=== PATIENT | male | born 1960 | race Two or more races ===

== ENCOUNTER 2016-10-31 10:33 | Emergency (ER) | payer MEDICAID ==
[~2016-10-31] VITALS: Ht 175.3 cm; Wt 142.4 kg
[~2016-10-31 10:33] MED LIST: AMIO200T33 PO; AMLO5TAB2 PO; ASPI81CH43 PO; BENA20TA14 PO; CARV25TA55 PO; DIGO0.1262 PO; FUR40T PO; POT20T PO; SPIR25TA89 PO; WARF2.5T39 PO
[2016-10-31] MEDS ORDERED: SODIUM CHLORIDE 0.9% 1,000 ML IV ONE (11:42)
[2016-10-31] MEDS ORDERED: DIGOXIN (250MCG/ML) 2 ML AMPULE IV ONE (11:45)
[2016-10-31 12:11] LABS: Basophils # (auto) 0.1 uL; CONDITION Y; Eosinophils # (auto) 0.2 uL; Eosinophils % (auto) 2.7 % (0.0-7.0); Hematocrit 44.3 % (41.0-53.0); Lymphocytes # (auto) 1.2 uL; Lymphocytes % (auto) 15.2 % (10.0-50.0); Mean Corpuscular Hemoglobin 31.5 pg (28.0-32.0); Mean Corpuscular Hgb Conc. 33.8 g/dL (32.0-36.0); Mean Corpuscular Volume 93.3 fL (80.0-100.0); Mean Platelet Volume 11.4 fL (7.4-10.4); Monocytes # (auto) 0.6 uL; Monocytes % (auto) 7.6 % (0.0-12.0); Neutrophils # (auto) 5.7 uL; Neutrophils % (auto) 73.5 % (37.0-80.0); Platelet Count (auto) 170 10^3/uL (140-450); Red Cell Distribution Width 14.1 % (11.6-16.0); SUSPECT SEE PRINTOUT; White Blood Cell 7.7 10^3/uL (4.4-10.8)
[2016-10-31 12:23] LABS: INR 0.99 (0.9-1.15); Partial Thromboplastin Time 31.5 sec (22.64-33.71); Prothrombin Time 10.8 sec (9.37-12.3)
[2016-10-31 12:30] LABS: Albumin 3.7 g/dL (3.4-5.0); BUN/Creatinine Ratio 9.8; Calcium 8.9 mg/dL (8.5-10.1); Magnesium 2.2 mg/dL (1.6-2.6); Potassium 4.4 mmol/L (3.5-5.1)
[2016-10-31 12:37] LABS: Bilirubin, Total 1.4 mg/dL (0.2-1.0)
[2016-10-31 16:48] VITALS: BP 129/77
== END 2016-10-31 19:00 | disposition home or self-care (01) ==
LOC: ER 10:33
DX: I13.0 Hypertensive heart and chronic kidney disease with heart failure and stage 1 through stage 4 chronic kidney disease, or unspecified chronic kidney disease (principal); I50.9 Heart failure, unspecified; E11.9 Type 2 diabetes mellitus without complications; N18.9 Chronic kidney disease, unspecified; E11.22 Type 2 diabetes mellitus with diabetic chronic kidney disease; J45.909 Unspecified asthma, uncomplicated; Z79.4 Long term (current) use of insulin; Z95.810 Presence of automatic (implantable) cardiac defibrillator; I48.91 Unspecified atrial fibrillation; Z79.01 Long term (current) use of anticoagulants; E66.01 Morbid (severe) obesity due to excess calories; Z68.42 Body mass index [BMI] 45.0-49.9, adult; E78.5 Hyperlipidemia, unspecified; Z79.82 Long term (current) use of aspirin; Z86.73 Personal history of transient ischemic attack (TIA), and cerebral infarction without residual deficits
CPT/HCPCS: 36415; 71020; 80053; 80162; 83735; 84443; 85025; 85610; 85730; 93005; 94761; 96361; 96374; 99285; J1160; J7030

== ENCOUNTER 2018-04-18 06:42 | Inpatient (IN) | payer MEDICAID ==
[~2018-04-18] VITALS: Ht 175.3 cm; Wt 148.0 kg
[~2018-04-18 06:42] MED LIST changes: -AMIO200T33 PO; -AMLO5TAB2 PO; -ASPI81CH43 PO; -BENA20TA14 PO; -CARV25TA55 PO; +GLIM4TAB42 PO; -POT20T PO; +SACU1TAB PO; -SPIR25TA89 PO; +SPIR50TA5 PO
[2018-04-18] MEDS ORDERED: LIDOCAINE 2%HCL (LOCAL ANESTH.) INJ 20ML MDV ONE ×3 (07:12→08:27)
[2018-04-18] MEDS ORDERED: fentaNYL CITRATE 100 MCG/2 ML VL ONE (07:32)
[2018-04-18] MEDS ORDERED: MIDAZOLAM HCL 1MG/1ML-2 ML VIAL ONE (07:32)
[2018-04-18] MEDS ORDERED: ceFAZolin 1GM/50ML 50 ML IV ONE (08:20)
[2018-04-18] MEDS ORDERED: ceFAZolin 1GM VL ONE (08:21)
[2018-04-18] MEDS: SACUBITRIL-VALSARTAN 24mg/26mg TAB PO SCH ×2 (10:00→21:38)
[2018-04-18] MEDS: SPIRONOLACTONE 25 MG TAB PO SCH (10:00)
[2018-04-18] MEDS ORDERED: NITROGLYCERIN 0.4 MG SL TAB SL PRN (10:15)
[2018-04-18] MEDS ORDERED: HYDROcodone-ACET 5/325MG TAB PO PRN (10:15)
[2018-04-18] MEDS ORDERED: ONDANSETRON HCL 4 MG/2 ML VIAL IV PRN (10:15)
[2018-04-18] MEDS ORDERED: WARFARIN SODIUM 5 MG TAB PO ONE (10:15)
[2018-04-18] MEDS ORDERED: DOXYCYCLINE 100 MG TAB/CAP PO ONE (10:15)
[2018-04-18] MEDS ORDERED: MORPHINE SULFATE 4 MG/ML SYR/VIAL IV PRN (10:15)
[2018-04-18] MEDS ORDERED: FUROSEMIDE 40 MG TAB PO ONE (10:45)
[2018-04-18] MEDS ORDERED: SPIRONOLACTONE 25 MG TAB PO ONE (10:45)
[2018-04-18] MEDS ORDERED: SACUBITRIL-VALSARTAN 24mg/26mg TAB PO ONE (10:45)
[2018-04-18] MEDS ORDERED: DEXTROSE (50%) 50ML SYRG IV PRN (10:45)
[2018-04-18] MEDS ORDERED: GLIMEPIRIDE 2 MG TAB PO ONE (10:45)
[2018-04-18] MEDS: ACCU-CHEK COMFORT CURVE STRIP VI SCH ×3 (10:50→21:39)
[2018-04-18] MEDS: InsuLIN REG 1unit/0.01ml Soln (100units/ml) SC SCH ×3 (10:50→21:39)
[2018-04-18] MEDS: GLIMEPIRIDE 2 MG TAB PO SCH (11:03)
[2018-04-18 12:41] LABS: Albumin 3.5 g/dL (3.4-5.0); BUN/Creatinine Ratio 12.2; Calcium 8.2 mg/dL (8.5-10.1); Partial Thromboplastin Time 30.6 sec (23.78-33.04); Potassium 4.2 mmol/L (3.5-5.1); Prothrombin Time 10.7 sec (9.27-12.13)
[2018-04-18 12:44] LABS: Bilirubin, Total 1.6 mg/dL (0.2-1.0); Total Protein 7.8 g/dL (6.4-8.2)
--- NOTE | 2018-04-18 16:00 | NUR ---
Telemetry admit from [facility] admitted to Telemetry unit after SBAR received. Patient oriented to PRUDENCIO GIVENS, primary RN, unit, room, bed, and unit policies regarding patient care and visiting hours. Patient now on continuous telemetry monitoring, tele box # 19 and telemetry reading on arrival to unit is . Patient placed on bedside oxygen, weighed by bed scale and encouraged to call if they need something. All questions and concerns addressed, patient verbalized understanding.
[2018-04-18 16:41] VITALS: BP 117/70
[2018-04-18 17:11] VITALS: BP 132/66
--- NOTE | 2018-04-18 20:00 | NUR ---
RECEIVED PATIENT IN BED, AAOX4. NO DISTRESS NOTED. AFEBRILE. DENIES ANY PAIN NOW. BOTH GROINS DRESSING NOTED. NO HEMATOMA NOTED. NO SOB NOTED. POCS DISCUSSED WITH PATIENT AND SHOWED UNDERSTANDING. BED KEPT ON LOWEST POSITION. SIDE RAILS UP. CALL LIGHT/TABLE IN REACH. KEPT COMFORTABLE.
[2018-04-18 22:04] VITALS: BP 109/75
[2018-04-19 05:00] VITALS: BP 119/66
[2018-04-19] MEDS: ACCU-CHEK COMFORT CURVE STRIP VI SCH ×2 (05:39→11:29)
[2018-04-19] MEDS: InsuLIN REG 1unit/0.01ml Soln (100units/ml) SC SCH ×2 (05:40→11:29)
[2018-04-19 06:55] LABS: Albumin 3.8 g/dL (3.4-5.0); Calcium 8.9 mg/dL (8.5-10.1); Potassium 4.2 mmol/L (3.5-5.1)
[2018-04-19 06:58] LABS: BUN/Creatinine Ratio 16.3; Bilirubin, Total 2.2 mg/dL (0.2-1.0); Total Protein 8.3 g/dL (6.4-8.2)
--- NOTE | 2018-04-19 06:58 | NUR ---
ON BED, AWAKE. STABLE. NO DISTRESS NOTED. FOR MORE CARE AND MANAGEMENT.
[2018-04-19 07:09] LABS: INR 1.01 (0.9-1.15); Partial Thromboplastin Time 31.5 sec (23.78-33.04); Prothrombin Time 10.8 sec (9.27-12.13)
--- NOTE | 2018-04-19 07:30 | NUR ---
Opening Shift Note Assumed care of patient, awake and alert. No S/S of distress/SOB or pain. Instructed on POC and to call for assist PRN, will continue to monitor for changes Q1hr and PRN.
[2018-04-19 09:00] VITALS: BP 102/57
[2018-04-19] MEDS: SPIRONOLACTONE 25 MG TAB PO SCH (09:36)
[2018-04-19] MEDS: SACUBITRIL-VALSARTAN 24mg/26mg TAB PO SCH (09:37)
[2018-04-19] MEDS: GLIMEPIRIDE 2 MG TAB PO SCH (09:37)
[2018-04-19] MEDS ORDERED: FUROSEMIDE 40 MG TAB PO SCH (10:00)
--- NOTE | 2018-04-19 10:00 | NUR ---
Received a call from dr. Moreau regarding patient clears to go home.
[2018-04-19 12:37] VITALS: BP 110/53
[2018-04-19 12:43] VITALS: BP 110/53
[2018-04-19 12:52] VITALS: BP 102/57
--- NOTE | 2018-04-19 14:29 | NUR ---
Discharge instructions given as ordered. Encourage to follow up with PMD (Dr Alan Avalos on Apr @ 1100AM [id number] [facility]/ [place] , Dr Moreau on Apr @ 1245AM [id number] [facility]/ [place] ) as instructed. All questions and concerns addressed. Patient verbalized understanding. Medication reconciliation form completed and copy given to patient. IV removed with catheter intact, pressure dressing applied. Telemetry unit returned to [facility]. Patient taken to vehicle via wheelchair with all personal belongings, accompanied by staff and family member. No distress noted at time of departure.
[2018-04-19] MEDS ORDERED: WARFARIN SODIUM 2.5 MG TAB PO SCH (17:00)
== END 2018-04-19 15:19 | disposition home or self-care (01) | DRG 175 ==
LOC: CATH 06:42 → TELE-WESTW 15:46
PROVIDERS: ADMIT Specialist; ATTEND Specialist
PROC: 02583ZZ Destruction of Conduction Mechanism, Percutaneous Approach (ICD-10-PCS; principal; 2018-04-18)
PROC: 4A0234Z Measurement of Cardiac Electrical Activity, Percutaneous Approach (ICD-10-PCS; 2018-04-18)
PROC: 4A023FZ Measurement of Cardiac Rhythm, Percutaneous Approach (ICD-10-PCS; 2018-04-18)
PROC: 4B02XSZ Measurement of Cardiac Pacemaker, External Approach (ICD-10-PCS; 2018-04-18)
DX: I48.0 Paroxysmal atrial fibrillation (principal); I42.9 Cardiomyopathy, unspecified; I50.9 Heart failure, unspecified; I44.2 Atrioventricular block, complete
CPT/HCPCS: 36415; 80053; 82962; 85610; 85730; 93656; A6257; G0378; J0690; J2250